=== PATIENT | male | born 1945 | race Caucasian/White ===

== ENCOUNTER 2018-05-12 19:22 | Observation (INO) | payer MEDICARE ==
[~2018-05-12] VITALS: Ht 172.7 cm; Wt 63.5 kg
[2018-05-12] MEDS ORDERED: ONDANSETRON HCL INJ 2 MG/ML VIAL IV STA ×2 (19:44)
[2018-05-12] MEDS ORDERED: METOCLOPRAMIDE HCL 10 MG/2ML VIAL IV ONE (19:45)
[2018-05-12 20:13] LABS: BASOPHILS % 0.4 % (0.0-1.0); EOSINOPHILS # (AUTO) 0.1 (0.0-0.4); EOSINOPHILS % 1.6 % (0.0-6.0); HEMATOCRIT 43.7 % (38.2-49.6); HEMOGLOBIN 15.2 g/dL (14.0-18.0); LYMPHOCYTES # (AUTO) 3.1 (1.0-3.2); LYMPHOCYTES % 38.5 % (18.0-39.1); MEAN CORPUSCULAR HEMOGLOBIN 29.9 pg (28-32); MEAN CORPUSCULAR HGB CONC 34.8 g/dL (31-35); MONOCYTES # (AUTO) 0.5 (0.2-0.8); MONOCYTES % 6.3 % (4.4-11.3); NEUTROPHILS # (AUTO) 4.3 (2.1-6.9); PLATELET COUNT 160 x10e3/uL (140-360); RED BLOOD COUNT 5.08 x10e6/uL (4.3-5.7); RED CELL DISTRIBUTION WIDTH 12.6 % (11.7-14.4)
[2018-05-12 20:35] LABS: ALANINE AMINOTRANSFERASE 23 IU/L (0-55); ALBUMIN/GLOBULIN RATIO 1.2 (0.8-2.0); ALKALINE PHOSPHATASE 99 IU/L (40-150); BLOOD UREA NITROGEN 25 mg/dL (7-26); BUN/CREATININE RATIO 22 (6-25); CALCIUM 10.5 mg/dL (8.4-10.2); CARBON DIOXIDE 22 mmol/L (22-29); CHLORIDE 105 mmol/L (98-107); CREATINE KINASE 82 IU/L (30-200); CREATININE, SERUM 1.16 mg/dL (0.72-1.25); EST GLOMERULAR FILTRATION RATE > 60 ML/MIN (60-); GLUCOSE 364 mg/dL (74-118); SODIUM 139 mmol/L (136-145)
--- NOTE | 2018-05-12 22:10 | Diagnostic Imaging Report ---
CHEST SINGLE (PORTABLE), 05/12/2018 7:44 PM Technique: CHEST SINGLE (PORTABLE) Comparison: None available. Clinical history: Chest pain Findings: Probable left upper lung calcified granuloma. Otherwise unremarkable portable appearance of the heart, mediastinum, lungs and pleural spaces. Impression: 1. Lines/Tubes: None 2. No acute abnormality. Signed by: Dr Silvia Ortega MD on 05/12/2018 10:07 PM
[2018-05-12 22:23] LABS: CLARITY,URINE CLEAR (CLEAR); COLOR,URINE YELLOW (YELLOW); LEUKOCYTE ESTERASE ,URINE NEGATIVE (NEGATIVE)
[2018-05-12 22:24] LABS: BILIRUBIN,URINE NEGATIVE (NEGATIVE); KETONES,URINE NEGATIVE (NEGATIVE); NITRITE,URINE NEGATIVE (NEGATIVE); PROTEIN,URINE DIPSTICK NEGATIVE (NEGATIVE); URINE UROBILINOGEN 0.2 mg/dL (0.2 - 1)
[2018-05-12 22:33] LABS: EPITHELIAL CELLS,URINE FEW /LPF
[2018-05-13] MEDS ORDERED: ASPIRIN 325 MG TAB EC PO STA (01:35)
[2018-05-13] MEDS ORDERED: DEXTROSE 50% SYRINGE 50 ML IV PRN (01:45)
[2018-05-13] MEDS ORDERED: NITROGLYCERIN 0.4 MG SUBL SL PRN (01:45)
[2018-05-13] MEDS ORDERED: MORPHINE SULFATE 2 MG/ML SYR IV PRN (01:45)
[2018-05-13] MEDS ORDERED: ONDANSETRON HCL INJ 2 MG/ML VIAL IV PRN (01:45)
[2018-05-13] MEDS: FAMOTIDINE 20 MG/2 ML VIAL IV SCH ×2 (02:00→13:20)
[2018-05-13 03:23] LABS: CREATINE KINASE 67 IU/L (30-200)
[2018-05-13] MEDS: INSULIN REGULAR, HUMAN 100 UNIT/1 ML 3ML VIAL SQ SCH ×4 (08:18→21:00)
[2018-05-13] MEDS ORDERED: ASPIRIN 81 MG ENTERIC COATED PO SCH (09:00)
[2018-05-13 10:54] LABS: CREATINE KINASE 57 IU/L (30-200)
[2018-05-13] MEDS ORDERED: SODIUM CHLORIDE 0.9% 1000ML 1,000 ML IV ONE (13:00)
[2018-05-13] MEDS ORDERED: CLARITIN10 M1 PO (14:01)
[2018-05-13] MEDS ORDERED: SYNTHROID50 MCG PO (14:01)
[2018-05-13] MEDS ORDERED: ASPIR 8181 MG PO (14:01)
[2018-05-13] MEDS ORDERED: SIMVASTATIN20 MG PO (14:01)
[2018-05-13] MEDS ORDERED: vitamin d3 PO (14:01)
--- NOTE | 2018-05-13 15:10 | Diagnostic Imaging Report ---
EXAMINATION: Head CT HISTORY: Weakness, nausea, chest pain COMPARISON: None. TECHNIQUE: Multidetector axial images were obtained without contrast from the foramen magnum to the vertex . The images were reconstructed using brain and bone algorithms. Thin section brain images were reformatted into coronal and sagittal planes. Image quality: Motion/streaking artifact limits the evaluation of the skull base and posterior cranial fossa. Dose modulation, iterative reconstruction, and/or weight based adjustment of the mA/kV was utilized to reduce the radiation dose to as low as reasonably achievable. FINDINGS: Parenchyma: 1. No abnormal densities. 2. No mass or hemorrhage. No CT evidence of acute territorial vascular insult. Extra-axial spaces:No abnormal density. No extra-axial fluid collections Brain volume: Normal for age. Ventricles: No hydrocephalus or displacement. Arteries: No density suggestive of thrombus. Dural sinuses: No abnormal density. Extra-axial spaces: No abnormal density. Foramen magnum: No mass, Chiari malformation, or basilar invagination. Sella: No obvious mass. Paranasal/mastoid sinuses: Imaged portions unremarkable. Skull/Scalp: No lytic or blastic lesions. No fractures. IMPRESSION: No intracranial abnormalities, particularly no hemorrhage or acute cortical infarct. Signed by: Dr. Yoly Kate M.D. on 05/13/2018 3:07 PM
[2018-05-13 15:43] VITALS: BP 145/70
[2018-05-13 15:59] VITALS: BP 145/70
[2018-05-13 20:00] VITALS: BP 118/64
[2018-05-13] MEDS ORDERED: SIMVASTATIN 20 MG TAB PO SCH (21:00)
[2018-05-13 21:07] LABS: CREATINE KINASE MB 1.4 ng/mL (0-5.0)
[2018-05-14] VITALS: BP 119/65
[2018-05-14] MEDS: FAMOTIDINE 20 MG/2 ML VIAL IV SCH (02:38)
[2018-05-14 04:00] VITALS: BP 111/61
[2018-05-14 05:42] LABS: BASOPHILS % 0.4 % (0.0-1.0); EOSINOPHILS # (AUTO) 0.2 (0.0-0.4); EOSINOPHILS % 2.1 % (0.0-6.0); HEMATOCRIT 40.1 % (38.2-49.6); HEMOGLOBIN 13.8 g/dL (14.0-18.0); LYMPHOCYTES # (AUTO) 3.2 (1.0-3.2); MEAN CORPUSCULAR HGB CONC 34.4 g/dL (31-35); MEAN CORPUSCULAR VOLUME 87.2 fL (81-99); MONOCYTES # (AUTO) 0.4 (0.2-0.8); MONOCYTES % 4.8 % (4.4-11.3); NEUTROPHILS # (AUTO) 4.4 (2.1-6.9); NEUTROPHILS % 53.5 % (38.7-80.0); PLATELET COUNT 138 x10e3/uL (140-360); RED CELL DISTRIBUTION WIDTH 12.8 % (11.7-14.4)
[2018-05-14 06:21] LABS: ANION GAP 13.8 mmol/L (8-16); BLOOD UREA NITROGEN 19 mg/dL (7-26); BUN/CREATININE RATIO 20 (6-25); CALCIUM 9.3 mg/dL (8.4-10.2); CARBON DIOXIDE 23 mmol/L (22-29); CHLORIDE 104 mmol/L (98-107); CREATININE, SERUM 0.97 mg/dL (0.72-1.25); EST GLOMERULAR FILTRATION RATE > 60 ML/MIN (60-); GLUCOSE 174 mg/dL (74-118); MAGNESIUM 1.5 MG/DL (1.3-2.1); POTASSIUM 3.8 mmol/L (3.5-5.1); SODIUM 137 mmol/L (136-145)
[2018-05-14] MEDS ORDERED: LEVOTHYROXINE SODIUM 50 MCG TAB PO SCH (06:30)
[2018-05-14 06:45] LABS: FREE T4 (FREE THYROXINE) 0.94 ng/dL (0.9-1.8); THYROID STIMULATING HORMONE 0.966 uIU/mL (0.350-4.940)
[2018-05-14 06:47] LABS: CHOL/HDL RATIO 2.6 (3.9-4.7)
--- NOTE | 2018-05-14 07:48 | Consultation ---
DATE OF CONSULTATION: May 13, 2018 REASON FOR CONSULTATION: Chest pain. HPI: This is pleasant 72-year-old male that presented with chest pain. According to the patient, times 2 days, he had left substernal chest pain that was sharp, that comes and go on a scale of 8 out of 10 that radiated to his left arm and left shoulder. He stated that the pain got constant that he decided to come into the emergency room for evaluation. He stated he had a cardiac stress test in [place] in 2014 that was negative. He denies any palpitation, any dizziness, any shortness of breath or diaphoresis. Troponin times 3 was negative. EKG shows sinus bradycardia with no ST abnormalities. PAST SURGICAL HISTORY: Bradycardia, hypertension, diabetes, hypothyroidism, and hyperlipidemia. PAST MEDICAL HISTORY: Hip surgery, appendectomy, ankle surgery, ear surgery, and back surgery. FAMILY HISTORY: Noncontributory. SOCIAL HISTORY: No smoking. No drinking. He lives in [place] with family. MEDICATIONS: See med list. ALLERGIES: HE IS NOT ALLERGIC TO ANY MEDICATION. REVIEW OF SYSTEMS: Negative except those mentioned above. PHYSICAL EXAMINATION VITALS: Temperature 98, heart rate 56, blood pressure 111/61, respiration 18, oxygen saturation 97% on room air. GENERAL: He is awake, alert, and oriented times 3. HEENT: Mucous membrane moist. NECK: Supple. LUNGS: Bilateral clear to auscultation. CARDIOVASCULAR: S1, S2 present. ABDOMEN: Soft. NEUROLOGIC: Intact. EXTREMITIES: With no edema. LABS: Sodium 139, potassium 4.0, chloride 105, CO2 22, BUN 25, creatinine 1.16. Glucose 364. White blood cell 8.11, hemoglobin 15.2, hematocrit 43.7, platelet 160,000. IMPRESSIONS 1. Chest pain. 2. Bradycardia. 3. Diabetes. 4. Hypothyroidism. ASSESSMENT/PLAN: Troponin times 3 was negative. He is pending echocardiogram. He wanted to go back home in [place] to get a stress test as an outpatient. Will go ahead and continue his home medications. His heart rate is gerald in the 50s, but asymptomatic. Further cardiac workup pending clinical course. Thank you for this consultation. Dictated By: Eren Taylor NP Job#: [id number] [id number]
[2018-05-14] MEDS ORDERED: JANUVIA100 MG PO (08:05)
[2018-05-14] MEDS: INSULIN REGULAR, HUMAN 100 UNIT/1 ML 3ML VIAL SQ SCH (08:09)
[2018-05-14 08:31] VITALS: BP 122/65
[2018-05-14] MEDS ORDERED: LORATADINE 10 MG TAB PO SCH (09:00)
[2018-05-14] MEDS ORDERED: ASPIRIN 81 MG CHEW TAB PO SCH (09:00)
[2018-05-14 09:22] VITALS: BP 122/65
--- NOTE | 2018-05-14 15:21 | Discharge Summary ---
ADMITTING DIAGNOSES 1. Chest pain. 2. Bradycardia. 3. Hypercalcemia. DISCHARGE DIAGNOSES 1. Chest pain. 2. Bradycardia. 3. Hypercalcemia. 4. Rule out myocardial infarction. HISTORY: The patient has a history of hyperlipidemia, type-2 diabetes, hypothyroidism. HOSPITAL COURSE: This 72-year-old male complains of chest pain described as constant ache that radiated to his left arm, back and neck that began on Thursday. 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 The pain resolved Thursday, but the patient says he continued to feel weak. He denied shortness of breath, palpitations, diaphoresis. Pain was not improved with anything or worsened by anything. On admission, the patient had an EKG that showed normal sinus rhythm. Chest x-ray was negative. CT of the brain showed no intracranial abnormalities. Cardiology was consulted, who discussed with the patient doing an outpatient stress test as the patient lives in [place]. Echo was done that showed an EF of 55% to 60% with mild mitral regurg. Vital signs were stable. Patient was afebrile. The patient's A1c was found to be 11.3. He was trying to control his diabetes with his diet, which obviously is not working. He will discharge home with Margarita. He says his daughter works in a doctor's office, so he could get a prescription for it cheap. The patient will discharge home and follow up for a stress test as discussed with primary care in 1 to 2 weeks. The patient understands the discharge instructions and plan and agrees to plan. Dictated by: Dianna Drake NP DEVON BRAGA MD Job#: [id number]
== END 2018-05-14 09:57 | disposition home or self-care (01) ==
LOC: ER 19:22 → ERHOLD 05-13 01:49 → IMCU 05-13 15:23
PROVIDERS: ADMIT Internal Medicine; ATTEND Internal Medicine
DX: R07.2 Precordial pain (principal); E78.5 Hyperlipidemia, unspecified; E03.9 Hypothyroidism, unspecified; Z83.3 Family history of diabetes mellitus; Z80.9 Family history of malignant neoplasm, unspecified; R00.1 Bradycardia, unspecified; E83.52 Hypercalcemia; E11.65 Type 2 diabetes mellitus with hyperglycemia
CPT/HCPCS: 36415 ×3; 70450; 71045; 80048; 80053; 80061; 81001; 82550 ×2; 82553 ×2; 82948; 83036; 83735; 83970; 84439; 84443; 84484 ×2; 85025 ×2; 93005; 93306; 99284; G0378 ×2; J2405; J2765; J7030